=== PATIENT | male | born 1980 | race Hispanic/Latino ===

== ENCOUNTER 2019-02-19 19:58 | Emergency (ER) | payer SELFPAY ==
[2019-02-19 20:22] LABS: BASOPHILS % (AUTO) 0.6 % (0.0-5.0); EOSINOPHILS % (AUTO) 1.9 % (0.0-8.0); LYMPHOCYTES % (AUTO) 17.4 % (21.0-51.0); MEAN CORPUSCULAR HEMOGLOBIN 30.8 pg (27.0-33.0); MEAN CORPUSCULAR HGB CONC 34.8 g/dL (32.0-36.0); MEAN CORPUSCULAR VOLUME 88.6 fL (79-99); NEUTROPHILS % (AUTO) 70.1 % (40.0-77.0); NUCLEATED RED BLOOD CELLS 0.1 % (0.0-0.19); PLATELET COUNT (AUTO) 205 K/uL (130-400); RED BLOOD CELL COUNT(AUTO) 5.08 MIL/uL (4.50-6.20); RED CELL DISTRIBUTION WIDTH 13.8 % (11.0-15.5); WHITE BLOOD COUNT (AUTO) 7.9 K/uL (4.8-10.8)
[2019-02-19 20:30] LABS: APPEARANCE,URINE Clear (CLEAR); BILIRUBIN,URINE Negative (NEGATIVE); COLOR,URINE Dark Yellow (YELLOW); GLUCOSE, URINE (UA) Negative (NEGATIVE); KETONES,URINE Negative (NEGATIVE); LEUKOCYTE ESTERASE ,URINE Negative (NEGATIVE); NITRATE,URINE Negative (NEGATIVE); OCCULT BLOOD,URINE Negative (NEGATIVE); PROTEIN,URINE POS 1+ mg/dL (NEGATIVE)
[2019-02-19 20:33] LABS: CREATININE 1.1 mg/dL (0.5-1.5); POTASSIUM 3.6 mmol/L (3.5-5.1)
[2019-02-19 20:34] LABS: INR 0.93 (0.85-1.15); PARTIAL THROMBOPLASTIN TIME 27.6 SEC (26.3-35.5); PROTHROMBIN TIME 9.8 SEC (9.6-11.6)
[2019-02-19 20:38] LABS: ALBUMIN 3.8 g/dL (3.5-5.0); BILIRUBIN,TOTAL 0.6 mg/dL (0.2-1.0); CRP QUANTITATIVE 45.6 mg/L (0.00-9.0); TOTAL PROTEIN, SERUM 7.9 g/dL (6.0-8.3)
[2019-02-19 20:41] LABS: BACTERIA,URINE Few /HPF (None Seen); MUCUS,URINE Many LPF (None Seen); SPERM,URINE Few /HPF (None Seen); SQUAMOUS EPITHELIAL CELL,UR 0-2 /HPF (0-2); WBC,URINE 0-1 /HPF (0-1)
[2019-02-19 21:35] LABS: ERYTHROCYTE SEDIMENTATION RATE 15 MM/HR (0-15)
[2019-02-19] MEDS ORDERED: CLINDAMYCIN HCL 150 MG CAP ONE (22:13)
[2019-02-19] MEDS ORDERED: TRAMADOL HCL 50 MG TABLET ONE (22:13)
== END 2019-02-19 22:35 | disposition home or self-care (01) ==
LOC: EDH 19:58
DX: L03.116 Cellulitis of left lower limb (principal); Z72.0 Tobacco use
CPT/HCPCS: 36415; 71045; 73590; 80053; 81001; 82550; 84484; 85025; 85610; 85651; 85730; 86140; 93005; 93971

== ENCOUNTER 2019-04-05 17:03 | Emergency (ER) | payer OTHER ==
[2019-04-05] MEDS ORDERED: KETOROLAC TROMETHAMINE 60 MG/2 ML VIAL ONE (18:06)
== END 2019-04-05 18:28 | disposition home or self-care (01) ==
LOC: EDH 17:03
DX: S39.011A Strain of muscle, fascia and tendon of abdomen, initial encounter (principal); Z72.0 Tobacco use; X58.XXXA Exposure to other specified factors, initial encounter; Y93.89 Activity, other specified; Y92.89 Other specified places as the place of occurrence of the external cause; Y99.8 Other external cause status
CPT/HCPCS: 96372; 99283; J1885

== ENCOUNTER 2019-07-04 01:28 | Emergency (ER) | payer OTHER ==
[2019-07-04 03:11] LABS: RAPID GROUP A STREP NEGATIVE (NEGATIVE)
[2019-07-04] MEDS ORDERED: BENZONATATE 100 MG CAPSULE PO ONE (03:53)
[2019-07-04] MEDS ORDERED: ACETAMINOPHEN EXTRA STRENGTH 500 MG TABLET ONE (03:53)
== END 2019-07-04 04:06 | disposition home or self-care (01) ==
LOC: EDH 01:28
DX: J11.1 Influenza due to unidentified influenza virus with other respiratory manifestations (principal); Z72.0 Tobacco use
CPT/HCPCS: 87804; 87880

== ENCOUNTER → 2019-10-12 | Outpatient (CLI) | payer OTHER | END | disposition home or self-care (01) | LOC: RAH 10:48 | PROVIDERS: ATTEND Physical Medicine & Rehabilitation | DX: M47.26 Other spondylosis with radiculopathy, lumbar region (principal); M51.16 Intervertebral disc disorders with radiculopathy, lumbar region | CPT/HCPCS: 72148 ==

== ENCOUNTER 2021-11-24 10:10 | Emergency (ER) | payer OTHER ==
[~2021-11-24] VITALS: Ht 165.1 cm; Wt 64.0 kg
[2021-11-24 10:13] VITALS: BP 123/72
[2021-11-24] MEDS ORDERED: IBUPROFEN 600 MG TABLET PO ONE (13:30)
[2021-11-24] MEDS ORDERED: IBUP-2070 PO (13:38)
[2021-11-24] MEDS ORDERED: DICY20TA2 PO (13:38)
[2021-11-24] MEDS ORDERED: BACI1CAP6 PO (13:38)
== END 2021-11-24 14:00 | disposition home or self-care (01) ==
LOC: EDH 10:10
DX: R42 Dizziness and giddiness (principal); J02.9 Acute pharyngitis, unspecified; R19.7 Diarrhea, unspecified; Z20.822 Contact with and (suspected) exposure to COVID-19; Z79.1 Long term (current) use of non-steroidal anti-inflammatories (NSAID)
CPT/HCPCS: 87635; 87804 ×2; 87880; 99283; C9803